=== PATIENT | male | born 1960 | race Caucasian/White ===

== ENCOUNTER 2016-08-04 19:51 | Inpatient (IN) | payer BC, OTHER ==
--- NOTE | ~2016-08-04 | DS ---
Discharge Summary [facility] [address] [place]. [address] NAME: BOOGIE DE GUZMAN : 64 STATUS : DIS IN PAT#: [id number] AGE: 55 ADM/REG DATE : 08/04/16 MR#: [id number] REPORT SERV DATE: 08/08/16 DICTATED BY: KAYODE MEYER DATE: 08/07/16 REPORT STATUS : Draft TRANSCRIBED BY: MODL DATE: 08/07/16 ADMISSION DATE: 08/04/2016 DISCHARGE DATE: 08/07/2016 DISCHARGE DIAGNOSES: 1. Volume overload, status post almost 20 pounds diuresis. 2. Minimally elevated liver enzymes. On admission, hepatitis panel was negative and ultrasound negative. 3. Chronic pain. 4. Macrocytic anemia, borderline. 5. Anxiety. CONSULTS: None. PROCEDURES: None. HOSPITAL COURSE: This is a 55-year-old gentleman who was admitted to the hospital with a suspected congestive heart failure exacerbation as a new onset. For details, please refer to H and P by Dr. Edgardo Hightower. In summary, the patient was admitted and was started on IV Lasix diuresis. The patient really responded to IV Lasix diuresis well putting out almost 20 pounds over his three days of hospital stay. The patient did have an echocardiogram done, and contrary to initial suspicion, the echocardiogram was completely benign, and thus, the patient was treated for a volume overload more than a congestive heart failure. The patient's renal function did bump up a little bit and his creatinine on discharge is 1.13 whereas it was 0.91 on admission. Again, the echocardiogram showed ejection fraction of 55% without any diastolic dysfunction. The patient did not have any valvular abnormalities, and the patient's right heart was also within normal limits. The patient did complain of flu-like symptoms and the patient's chest x-ray and CT showed possible right lower lobe infiltrates, for which, patient was simply treated with empiric antibiotics, Levaquin. Of note, the patient's white blood cell count has remained normal with negative procalcitonin level, and the patient has stayed afebrile throughout the hospital stay. After the second day of excellent diuresis, the patient is now being discharged home with close outpatient followup instructions. DISPOSITION: Home. DISCHARGE MEDICATIONS: 1. Coreg 3.125 mg p.o. b.i.d. 2. Lisinopril 5 mg p.o. daily. Otherwise, no changes. The patient will simply continue Lasix 40 mg daily with K-Dur 20 mEq p.o. daily amongst many other of his home medications. FOLLOWUP: Please follow up with PCP in the next one to two weeks. A total of 25 minutes spent in coordinating this patient's discharge today. Discharge Summary [address] [address] NAME: BOOGIE DE GUZMAN : 64 STATUS : DIS IN [facility]#: [id number] AGE: 55 ADM/REG DATE : 08/04/16 MR#: [id number] REPORT SERV DATE: 08/08/16 DICTATED BY: KAYODE MEYER DATE: 08/07/16 REPORT STATUS : Draft TRANSCRIBED BY: DMITRY DATE: 08/07/16 [facility]/DMITRY Kayode Meyer MD / [id number] CC: MD Eliezer Manuel
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
[2016-08-04 18:26] LABS: BASOPHILS 0.2 %; BASOPHILS ABSOLUTE 0.01 10/3/uL (0.0-0.16); EOSINOPHILS 2.1 %; EOSINOPHILS ABSOLUTE 0.11 10/3/uL (0.0-0.53); HEMATOCRIT 30.5 % (40.0-51.0); HEMOGLOBIN 10.4 g/dL (13.6-17.8); IMMATURE GRANULOCYTES 0.2 %; IMMATURE GRANULOCYTES ABSOLUTE 0.01 10/3/uL (0.0-0.11); LYMPHOCYTES 17.5 %; MEAN CORPUS HGB CONC 34.1 g/dL (32.0-36.0); MEAN CORPUSCULAR HEMOGLOB 34.2 pg (26.0-34.0); MEAN CORPUSCULAR VOLUME 100.3 fL (80-100); MONOCYTES 11.1 %; MONOCYTES ABSOLUTE 0.57 10/3/uL (0.21-1.20); NEUTROPHILS 68.9 %; NEUTROPHILS ABSOLUTE 3.53 10/3/uL (2.02-8.40); PLATELET COUNT 124 10/3/uL (150-400); RBC DISTRIBUTION WIDTH 16.4 % (12.0-16.0); RED CELL COUNT 3.04 10/6/uL (4.7-6.1); WHITE BLOOD CELLS 5.1 10/3/uL (4.5-10.5)
[2016-08-04 18:29] LABS: MANUAL DIFF NO %
[2016-08-04 18:33] LABS: INTERNATIONAL NORMAL RATI 1.8 UNITS (-); PROTIME (NOT ORD) 20.5 SEC (12.0-14.5)
[2016-08-04 18:34] LABS: PARTIAL THROMBO TIME 38.7 SEC (22.5-37.2)
[2016-08-04 18:43] LABS: BUN (BLOOD UREA NITROGEN) 6 MG/DL (6-23); CALCIUM, SERUM 7.7 MG/DL (8.5-10.4); CHEST PAIN PROFILE TAT 0 Hrs 21 Mins; CHLORIDE, SERUM 115 MMOL/L (96-112); CO2 (CARBON DIOXIDE) 29 MMOL/L (24-34); CREATININE 0.91 MG/DL (0.70-1.30); GFR AFRICAN AMERICAN 111 ML/MIN (>=60); GFR NON AFRICAN AMERICAN 96 ML/MIN (>=60); GLUCOSE, SERUM 102 MG/DL (60-99); POTASSIUM, SERUM 4.5 MMOL/L (3.5-5.3); SODIUM, SERUM 148 MMOL/L (135-148); TROPONIN I <0.02 NG/ML (<0.05)
[2016-08-04 19:35] LABS: ASCORBIC ACID (UR NOT ORDER) NEG (NEG); BILIRUBIN, URINE NEGATIVE (NEG); ER URINALYSIS TAT 0 Hrs 08 Mins; KETONE, URINE NEGATIVE (NEG); LEUKOCYTE ESTERASE(NOT OR NEG (NEG); NITRITE (URINE) NEG (NEG); WBC (NOT ORDERED) (RFLEX) 1 (0-5)
[2016-08-04 20:01] LABS: ALBUMIN 1.4 G/DL (3.5-5.0); ALKALINE PHOSPHATASE 123 U/L (45-117); DIRECT BILIRUBIN 0.2 MG/DL (0.0-0.4); INDIRECT BILIRUBIN(NOT ORDER) 0.1 MG/DL (0.1-0.9); SGOT(AST) 59 U/L (5-40); SGPT(ALT) 75 U/L (5-65); TOTAL BILIRUBIN 0.3 MG/DL (0-1.2); TOTAL PROTEIN 5.1 G/DL (6.0-8.5)
[2016-08-04] MEDS ORDERED: KDUR20 PO (21:28)
[2016-08-04] MEDS ORDERED: L40 PO (21:28)
[2016-08-04] MEDS ORDERED: PRILO PO (21:30)
[2016-08-04] MEDS ORDERED: VITAMIN D31000 UNIT PO (21:31)
[2016-08-04] MEDS ORDERED: XANAX2 MG PO (21:31)
[2016-08-04] MEDS ORDERED: AMB5 PO (21:32)
[2016-08-05 05:37] LABS: BASOPHILS 0.4 %; BASOPHILS ABSOLUTE 0.01 10/3/uL (0.0-0.16); EOSINOPHILS 6.1 %; EOSINOPHILS ABSOLUTE 0.17 10/3/uL (0.0-0.53); HEMOGLOBIN 8.8 g/dL (13.6-17.8); INTERNATIONAL NORMAL RATI 1.9 UNITS (-); LYMPHOCYTES 23.7 %; LYMPHOCYTES ABSOLUTE 0.66 10/3/uL (0.67-4.30); MEAN CORPUS HGB CONC 35.3 g/dL (32.0-36.0); MEAN CORPUSCULAR HEMOGLOB 34.6 pg (26.0-34.0); MEAN PLATELET VOLUME 11.8 fL (9.2-13.0); MONOCYTES 12.6 %; MONOCYTES ABSOLUTE 0.35 10/3/uL (0.21-1.20); NEUTROPHILS 57.2 %; NEUTROPHILS ABSOLUTE 1.59 10/3/uL (2.02-8.40); PLATELET COUNT 102 10/3/uL (150-400); PROTIME (NOT ORD) 21.8 SEC (12.0-14.5); RBC DISTRIBUTION WIDTH 16.2 % (12.0-16.0); RED CELL COUNT 2.54 10/6/uL (4.7-6.1)
[2016-08-05 05:38] LABS: PARTIAL THROMBO TIME 44.1 SEC (22.5-37.2)
[2016-08-05 05:40] LABS: HEMATOCRIT 24.9 % (40.0-51.0); WHITE BLOOD CELLS 2.8 10/3/uL (4.5-10.5)
[2016-08-05 05:41] LABS: MANUAL DIFF NO %
[2016-08-05 06:36] LABS: A/G RATIO 0.7 (0.7-1.9); ALKALINE PHOSPHATASE 89 U/L (45-117); BUN (BLOOD UREA NITROGEN) 6 MG/DL (6-23); CALCIUM, SERUM 7.9 MG/DL (8.5-10.4); CHLORIDE, SERUM 112 MMOL/L (96-112); CK-MB 2.5 NG/ML; CO2 (CARBON DIOXIDE) 30 MMOL/L (24-34); CPK 150 U/L (0-200); CREATININE 0.83 MG/DL (0.70-1.30); FOLATE 12.7 NG/ML (>5.2); GFR AFRICAN AMERICAN 116 ML/MIN (>=60); GFR NON AFRICAN AMERICAN 100 ML/MIN (>=60); GLOBULIN 2.8 G/DL (2.5-4.1); GLUCOSE, SERUM 108 MG/DL (60-99); POTASSIUM, SERUM 3.8 MMOL/L (3.5-5.3); SGOT(AST) 35 U/L (5-40); SGPT(ALT) 51 U/L (5-65); SODIUM, SERUM 148 MMOL/L (135-148); TOTAL BILIRUBIN 0.5 MG/DL (0-1.2); TOTAL PROTEIN 4.8 G/DL (6.0-8.5); TROPONIN I <0.02 NG/ML (<0.05)
[2016-08-05 10:09] LABS: HEPATITIS C ANTIBODY NON-REACTIVE (NON-REACT)
[2016-08-05 10:10] LABS: HEPATITIS B CORE AB IGM NON-REACTIVE (NON-REAC)
[2016-08-05 10:11] LABS: HEP A ANTIBODY IGM NON-REACTIVE (NON-REACT)
[2016-08-05 10:29] LABS: HEPATITIS B SURFACE ANTIGEN NON-REACTIVE (NON-REACT)
[2016-08-06 06:18] LABS: BASOPHILS 0.1 %; BASOPHILS ABSOLUTE 0.01 10/3/uL (0.0-0.16); IMMATURE GRANULOCYTES 0.1 %; IMMATURE GRANULOCYTES ABSOLUTE 0.01 10/3/uL (0.0-0.11); LYMPHOCYTES 17.8 %; LYMPHOCYTES ABSOLUTE 1.19 10/3/uL (0.67-4.30); MEAN CORPUS HGB CONC 34.6 g/dL (32.0-36.0); MEAN CORPUSCULAR HEMOGLOB 34.6 pg (26.0-34.0); MEAN PLATELET VOLUME 12.2 fL (9.2-13.0); MONOCYTES 9.3 %; MONOCYTES ABSOLUTE 0.62 10/3/uL (0.21-1.20); NEUTROPHILS 69.7 %; NEUTROPHILS ABSOLUTE 4.65 10/3/uL (2.02-8.40); PLATELET COUNT 126 10/3/uL (150-400); RBC DISTRIBUTION WIDTH 16.2 % (12.0-16.0)
[2016-08-06 06:20] LABS: HEMATOCRIT 30.6 % (40.0-51.0); HEMOGLOBIN 10.6 g/dL (13.6-17.8); MANUAL DIFF NO %; RED CELL COUNT 3.06 10/6/uL (4.7-6.1); WHITE BLOOD CELLS 6.7 10/3/uL (4.5-10.5)
[2016-08-06 06:41] LABS: BUN (BLOOD UREA NITROGEN) 7 MG/DL (6-23); CALCIUM, SERUM 8.9 MG/DL (8.5-10.4); CHLORIDE, SERUM 104 MMOL/L (96-112); CO2 (CARBON DIOXIDE) 30 MMOL/L (24-34); CREATININE 1.02 MG/DL (0.70-1.30); GFR AFRICAN AMERICAN 97 ML/MIN (>=60); GFR NON AFRICAN AMERICAN 84 ML/MIN (>=60); GLUCOSE, SERUM 73 MG/DL (60-99); POTASSIUM, SERUM 4.6 MMOL/L (3.5-5.3); SODIUM, SERUM 142 MMOL/L (135-148)
[2016-08-07 06:21] LABS: BASOPHILS 0.1 %; BASOPHILS ABSOLUTE 0.01 10/3/uL (0.0-0.16); EOSINOPHILS 2.1 %; EOSINOPHILS ABSOLUTE 0.17 10/3/uL (0.0-0.53); IMMATURE GRANULOCYTES 0.2 %; IMMATURE GRANULOCYTES ABSOLUTE 0.02 10/3/uL (0.0-0.11); LYMPHOCYTES 13.9 %; LYMPHOCYTES ABSOLUTE 1.12 10/3/uL (0.67-4.30); MEAN CORPUS HGB CONC 34.5 g/dL (32.0-36.0); MEAN CORPUSCULAR HEMOGLOB 34.7 pg (26.0-34.0); MEAN CORPUSCULAR VOLUME 100.7 fL (80-100); MEAN PLATELET VOLUME 11.7 fL (9.2-13.0); MONOCYTES 10.8 %; MONOCYTES ABSOLUTE 0.87 10/3/uL (0.21-1.20); NEUTROPHILS 72.9 %; NEUTROPHILS ABSOLUTE 5.88 10/3/uL (2.02-8.40); PLATELET COUNT 130 10/3/uL (150-400); RBC DISTRIBUTION WIDTH 16.2 % (12.0-16.0); RED CELL COUNT 2.88 10/6/uL (4.7-6.1); WHITE BLOOD CELLS 8.1 10/3/uL (4.5-10.5)
[2016-08-07 06:22] LABS: MANUAL DIFF NO %
[2016-08-07 06:29] LABS: BUN (BLOOD UREA NITROGEN) 9 MG/DL (6-23); CALCIUM, SERUM 7.9 MG/DL (8.5-10.4); CHLORIDE, SERUM 102 MMOL/L (96-112); CO2 (CARBON DIOXIDE) 36 MMOL/L (24-34); CREATININE 1.13 MG/DL (0.70-1.30); GFR AFRICAN AMERICAN 86 ML/MIN (>=60); GFR NON AFRICAN AMERICAN 74 ML/MIN (>=60); GLUCOSE, SERUM 88 MG/DL (60-99); POTASSIUM, SERUM 4.5 MMOL/L (3.5-5.3); SODIUM, SERUM 140 MMOL/L (135-148)
[2016-08-07] MEDS ORDERED: PRIN5 PO (09:05)
[2016-08-07] MEDS ORDERED: COREG3 PO (09:06)
[2016-08-07] MEDS ORDERED: NORCO1 TA1 PO (09:10)
== END 2016-08-07 10:56 | disposition home or self-care (01) | DRG 641 ==
LOC: ER 19:51 → 6NO 21:50
PROVIDERS: Emergency Medicine; Hospitalist; Internal Medicine
DX: E87.70 Fluid overload, unspecified (principal); D53.9 Nutritional anemia, unspecified; G89.29 Other chronic pain; F41.9 Anxiety disorder, unspecified; R94.5 Abnormal results of liver function studies; J39.9 Disease of upper respiratory tract, unspecified
CPT/HCPCS: 71010; 71250; 76705; 80048; 80053; 80074; 80076; 81001; 82550; 82553; 82607; 82746; 83735; 83880; 84439; 84443; 84484; 85025; 85610; 85730; 93306; 96374; 99284; A9270-GY; P9047